=== PATIENT | female | born 1940 | race Caucasian/White ===

== ENCOUNTER 2017-09-02 17:50 | Emergency (ER) | payer MEDICARE, MEDICAID ==
[~2017-09-02] VITALS: Ht 162.6 cm; Wt 79.4 kg
[2017-09-02 18:05] VITALS: BP 135/62
[2017-09-02 19:35] VITALS: BP 148/56
[2017-09-02 20:24] VITALS: BP_SYST 142; BP_SYST 148; BP_DIAS 40; BP_DIAS 56
--- NOTE | 2017-09-03 12:32 | Diagnostic Imaging Report ---
Indication: Pain Findings: 3 views of the left shoulder were obtained. Alignment of the left shoulder is normal. No acute fracture is identified. Bones are osteopenic. Soft tissues are unremarkable. Impression: No acute injury
--- NOTE | 2017-09-03 12:33 | Diagnostic Imaging Report ---
Indications: hip pain Findings: Two views of the left hip were obtained. There is no acute fracture. Bones are osteopenic. There is osteophyte formation and narrowing of the left hip joint. Large calcified mass in the pelvis demonstrated. Impression: No acute injury. Suspected large uterine fibroid
--- NOTE | 2017-09-03 12:33 | Diagnostic Imaging Report ---
Indication: pain Findings: Single AP view of the pelvis was performed. The bones are osteopenic. There is no obvious fracture or malalignment. Degenerative changes of both hips and lower lumbar spine noted. Large calcified mass noted in the pelvis. Impression: No acute injury identified.
--- NOTE | 2017-09-03 14:31 | Emergency Room Report ---
History of Present Illness General Chief Complaint: Multiple Trauma/Fall Source: Patient Present Illness HPI [id number] came by wheelchair with left hip and left shoulder pain s/p accidentally fell out of wheelchair while daugther was pushing her down the street. Denies hitting head Denies chest pain, SOB, back pain, abd pain, nausea/vomiting Not on ASA, AC Feels well otherwise Lives in [place] Allergies: Coded Allergies: No Known Allergies (Unverified , 09/02/17) Patient History Past Medical History: none Past Surgical History: none Pertinent Family History: none Social History: Denies: smoking, alcohol use, drug use Now: No Immunizations: UTD Reviewed Nursing Documentation: PMH: Agreed, PSxH: Agreed Nursing Documentation-PMH Hx Diabetes: Yes Review of Systems All Other Systems: negative except mentioned in HPI Physical Exam Vital Signs Date Time Temp Pulse Resp B/P (MAP) Pulse Ox O2 Delivery O2 Flow Rate FiO2 09/02/17 17:54 98.1 100 18 111/65 98 Room Air Sp02 EP Interpretation: reviewed, normal General Appearance: normal inspection, well appearing, no apparent distress, alert, GCS 15, non-toxic, obese, other - Smiling, well-appearing elderly lady, conversant, sitting upright in stretcher Head: normocephalic, atraumatic Eyes: bilateral eye PERRL, bilateral eye EOMI ENT: normal ENT inspection, hearing grossly normal, normal voice Neck: normal inspection, full range of motion, supple, no bony tend Respiratory: normal inspection, lungs clear, normal breath sounds, no respiratory distress, no retraction, no wheezing Cardiovascular #1: regular rate, rhythm, no edema Gastrointestinal: normal inspection, normal bowel sounds, non tender, soft, no guarding, no hernia Genitourinary: no CVA tenderness Musculoskeletal: normal inspection, back normal, normal range of motion, Victorino' s Sign negative, other - Left shoulder: Full ROM, no obvious deformity. Left hip: Pelvis stable. Full ROM of left leg. 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, speech normal Psychiatric: normal inspection, judgement/insight normal, mood/affect normal Skin: normal inspection, normal color, no rash Medical Decision Making Diagnostic Impression: Primary Impression: Multiple injuries due to trauma Additional Impressions: Left hip pain Left shoulder pain Qualified Codes: M25.512 - Pain in left shoulder Fall Qualified Codes: W19.XXXA - Unspecified fall, initial encounter ER Course Accidental fall out of wheelchair Left shoulder, hip pain Xrays negative for acute trauma on ED review (see below) Patient refused analgesia DC with daughter back to [facility] Advised Tylenol or ice as needed for pain Other X-Ray Diagnostic Results Other X-Ray Diagnostic Results #1: X-Ray ordered: Left shoulder # of Views/Limited Vs Complete: 3 View Indication: Pain EP Interpretation: Yes Interpretation: no dislocation, no soft tissue swelling, no fractures, nonspecific bowel gas Impression: No acute disease Electronically Signed by: Dr Rene Smith MD Other X-Ray Diagnostic Results #2: X-Ray ordered: AP Pelvis # of Views/Limited Vs Complete: 1 View Indication: Pain EP Interpretation: Yes Interpretation: no dislocation, no soft tissue swelling, no fractures Impression: No acute disease Electronically Signed by: Dr Rene Smith MD Other X-Ray Diagnostic Results #3: X-Ray ordered: Left hip # of Views/Limited Vs Complete: 2 View Indication: Pain EP Interpretation: Yes Interpretation: no dislocation, no soft tissue swelling, no fractures Impression: No acute disease Electronically Signed by: Dr Rene Smith MD Last Vital Signs Date Time Temp Pulse Resp B/P (MAP) Pulse Ox O2 Delivery O2 Flow Rate FiO2 09/02/17 20:24 98.1 95 18 148/56 94 Room Air Status: improved Disposition: HOME, SELF-CARE Condition: Improved Referrals: NON PHYSICIAN (PCP) Patient Instructions: Musculoskeletal Pain Additional Instructions: - Apply ice or take tylenol for pain - Follow up with your doctor in 2-3 days RENE SMITH M.D. Sep 03, 2017 14:31
== END 2017-09-02 20:25 | disposition home or self-care (01) ==
LOC: EDBD 17:50 → EMR 18:45
DX: S79.812A Other specified injuries of left hip, initial encounter (principal); S49.92XA Unspecified injury of left shoulder and upper arm, initial encounter; W05.0XXA Fall from non-moving wheelchair, initial encounter; Y92.410 Unspecified street and highway as the place of occurrence of the external cause; E11.9 Type 2 diabetes mellitus without complications
CPT/HCPCS: 72170; 73502; 99282